=== PATIENT | male | born 1945 | race Caucasian/White ===

== ENCOUNTER 2016-11-04 09:53 | Day surgery (SDC) | payer OTHER ==
[2016-11-02 15:00] VITALS: BMI 26.2
--- NOTE | 2016-11-04 07:14 | HP ---
History & Physical Update - History History: No Change - Physical Physical: No Change - Assessment Assessment: No Change - Plan Plan: No Change (This is my first time meeting the patient. Introduced myself and informed the patient that I will be assisting Dr. Rod for the procedure.)
[~2016-11-04 09:53] MED LIST: CEFAZOLIN 2 GM in DEXTROSE 5%-WATER - 100 ML IVPB ONE; oxyCODONE HCL 10 MG SUSTAINED ACTING TABLET PO STA
[2016-11-04] MEDS ORDERED: MIDAZOLAM HCL 2 MG/2 ML SINGLE DOSE VIAL ONE ×2 (10:29)
[2016-11-04] MEDS ORDERED: ePHEDrine SULFATE 50 MG/1 ML AMPULE ONE (10:29)
[2016-11-04] MEDS ORDERED: oxyCODONE HCL 5 MG TABLET ONE (10:42)
[2016-11-04] MEDS ORDERED: LIDOCAINE 1%-EPI 1:100,000 30 ML MDV IJ ONE (10:56)
[2016-11-04] MEDS ORDERED: BUPIVACAINE HCL/PF 2.5 MG/ML - 30 ML VIAL IJ ONE (10:56)
[2016-11-04] MEDS ORDERED: THROMBIN (BOVINE) 5,000 UNIT VIAL TP ONE ×2 (10:56→12:47)
[2016-11-04] MEDS ORDERED: methylPREDNISolone ACET (DEPO) 40 MG/1 ML VIAL ONE (10:56)
[2016-11-04] MEDS ORDERED: LACTATED RINGERS SOLUTION 1,000 ML IV SCH (11:30)
[2016-11-04] MEDS ORDERED: ONDANSETRON 4 MG/2 ML VIAL IVPUSH PRN (11:32)
[2016-11-04] MEDS ORDERED: oxyCODONE HCL 5 MG TABLET PO PRN (11:32)
[2016-11-04] MEDS ORDERED: LIDOCAINE 1%/EPI 1:100000 (50 ML MULTI DOSE VIAL) INF ONE (11:41)
[2016-11-04] MEDS ORDERED: GUM MASTIC/STORAX/MSAL/ALCOHOL 1 DRP DROPSBTL MC ONE (12:45)
[2016-11-04] MEDS ORDERED: methylPREDNISolone ACET (DEPO) 40 MG/1 ML VIAL IM ONE (12:46)
[2016-11-04] MEDS ORDERED: BUPIVACAINE HCL/PF 0.25% (2.5MG/ML) 10 ML VIAL IJ ONE (12:46)
[2016-11-04] MEDS ORDERED: ACETAMINOPHEN INJECTION 100 ML IVPB ONE (13:04)
--- NOTE | 2016-11-04 13:04 | OP ---
Operative Note - Note: Operative Date: 11/04/16 Pre-Operative Diagnosis: Spinal stenosis, lumbar radiculopathy Operation: Laminectomy L4-S1 bilateral Post-Operative Diagnosis: Same as Pre-op Surgeon: Josue Rod Corrugated Fastener Driver: Steve Vega Anesthesiologist/COMPLAINT INVESTIGATIONS OFFICER: Storm Dunn Anesthesia: Spinal Estimated Blood Loss (mls): 30 Fluid Volume Replaced (mls): 1,000 Operative Report Dictated: Yes
--- NOTE | 2016-11-04 13:05 | SURG ---
Surgery It Application Administrator Note It Application Administrator: Steve Vega PA-C Date of Service: 11/04/16 Diagnosis: Spinal stenosis, lumbar radiculopathy Procedure: CPT: 17453 Laminectomy L4-S1 bilateral I was present for the entirety of the operative procedure. For further detail, please refer to operative report. Visit type - Case Type Case Type: Scheduled Admission - New patient This patient is new to me today: Yes Date on this admission: 11/04/16
[2016-11-04] MEDS ORDERED: ACETAMINOPHEN 1000 MG/100 ML VIAL (NON FORMULARY) IVPB ONE (13:08)
[2016-11-04 14:41] VITALS: TEMP 98
[2016-11-04 15:20] VITALS: BP 152/76; PULSE 51
--- NOTE | 2016-11-04 19:49 | OP ---
DATE OF OPERATION: 11/04/2016 PREOPERATIVE DIAGNOSIS: Spinal stenosis L4-L5, L5-S1. POSTOPERATIVE DIAGNOSIS: Spinal stenosis L4-L5, L5-S1. PROCEDURE PERFORMED: Laminectomy L4-L5, L5-S1. SURGEON: Josue Rod MD FAST FOOD FRY COOK: DUGLAS Pool ESTIMATED BLOOD LOSS: 50 mL. IV FLUIDS: Per Anesthesia. ANESTHESIA: Spinal. COMPLICATIONS: None. DISPOSITION: The patient was brought to the PACU in stable condition. INDICATIONS FOR SURGERY: The patient is a 71-year-old gentleman who has been suffering from pain from his back down his legs. X-rays and MRI were completed, which noted that he had spinal stenosis at L4-L5, L5-S1. He had gone through an exhaustive course of treatment for this, which included medications, physical therapy as well as injections. Unfortunately, his pain continued to persist despite all this. At this point, risks, benefits, and alternatives were discussed, and the patient consented to surgery. DESCRIPTION OF PROCEDURE: The patient was brought to the operating room by the Anesthesia staff. After appropriate patient identification was performed, spinal anesthesia was given. He was placed prone onto the Rupesh frame with all areas and bony prominences well padded at this time. Two needles were placed into his back to zane off the L4 and S1 segments, and x-ray was taken to confirm this was correct. The needle was removed, and 10 mL of lidocaine with epinephrine was injected into his back. At this time, his back was prepped and draped in a sterile manner. At this point, a time-out was completed. An incision was made from the top of L4 down to the bottom of S1. Dissection was carried down to the fascia. Fascia was split open at this time, and appropriate retractor was then placed in. A spinal needle was placed onto the L4 lamina to zane off the L4-L5 level, and x-rays were taken to confirm this was correct. Needle was removed, and the microscope was brought in. At this point, the interspinous ligament at L4-L5 and L5-S1 was removed. The spinous process at L5 was removed. A fatou was used to remove the remaining lamina. The flavum was identified, and it was removed. A complete decompression was performed by removing portions of the facet such that by the end of the procedure, the L5 and S1 nerve roots appeared to be well decompressed. All bleeding was well controlled at this time. Steri-Strips was placed over the nerve root. FloSeal was placed over that. The fascia was closed with a No. 1 Vicryl suture. The subcutaneous tissue was closed with 2-0 Vicryl suture. The skin was closed with 3-0 Monocryl suture. Dermabond was applied. A sterile dressing was applied. The patient was placed supine on the OR bed and brought to the PACU in stable condition. Ashly MCARTHUR/[id number] MTDD
== END 2016-11-04 15:29 | disposition home or self-care (01) ==
LOC: FASU 09:53
PROVIDERS: ATTEND Orthopaedic Surgery Orthopaedic Surgery of the Spine
PROC: 01NB0ZZ Release Lumbar Nerve, Open Approach (ICD-10-PCS; principal; 2016-11-04 11:30)
DX: M48.07 Spinal stenosis, lumbosacral region (principal)
CPT/HCPCS: 72100-TC; 76000-TC; 94760